=== PATIENT | female | born 2000 | race Caucasian/White ===

== ENCOUNTER 2018-12-07 22:06 | Emergency (ER) | payer OTHER ==
[~2018-12-07] VITALS: Ht 157.5 cm; Wt 52.0 kg
[~2018-12-07 22:06] MED LIST: ALBU18HF INHALATION; BUDE6.9H INHALATION
[2018-12-07 22:19] VITALS: Ht 157.5 cm; Wt 52.0 kg
[2018-12-07] MEDS ORDERED: IPRATROPIUM (NEB) 0.5 MG/2.5 ML AMP NEB STA (23:01)
[2018-12-07] MEDS ORDERED: ALBUTEROL 0.5% (NEB) 2.5 MG/0.5 ML AMP INH STA (23:01)
--- NOTE | 2018-12-07 23:58 | ERD ---
ER Documentation Chief Complaint Chief Complaint dry cough x1 week with chest tightness x 1 day HPI 17-year-old female presents to ED complaining of dry cough x1 week. Patient denies any fevers or chills. Denies any abdominal pain, nausea, vomiting, diarrhea. Patient reports a history of asthma in which she ran out of her inhalers. She is asked for refill for inhalers. She is also asking for a breathing treatment to help make her feel better. She reports this has happened in the past in which she is received a breathing treatment and feels much better afterwards. ROS All systems reviewed and are negative except as per history of present illness. Medications Home Meds Active Scripts Budesonide-Formoterol Fumarate* (Symbicort*) 80-4.5 Mcg Hfa.aer.ad, 2 PUFF IN HALATION BID, #1 BOTTLE Prov:DAPHNEY RIBERA PA-C 12/07/18 Albuterol Sulfate* (Ventolin HFA*) 18 Gm Hfa.aer.ad, 2 PUFF INHALATION Q4H, #1 INHALER Prov:DAPHNEY RIBERA PA-C 12/07/18 Allergies Allergies: Coded Allergies: No Known Allergy (Unverified , 12/07/18) PMhx/Soc Hx Respiratory Disorders: Yes (ASTHMA ) Hx Alcohol Use: No Hx Substance Use: No Hx Tobacco Use: No Smoking Status: Never smoker FmHx Family History: No diabetes Physical Exam Vitals Vital Signs Date Temp Pulse Resp B/P (MAP) Pulse Ox O2 O2 Flow FiO2 Time Delivery Rate 12/07/18 88 18 98 21 23:21 12/07/18 99.9 93 16 128/82 98 22:19 (97) Physical Exam Const: No acute distress Head: Atraumatic . Resp: Moderate wheezing with expiration in bilateral lungs Cardio: Regular rate and rhythm, Abd: Soft, non tender, non distended. Neur: Awake and alert Psych: Normal Mood and Affect Results 24 hrs Current Medications Medications Dose Sig/Luke Start Time Status Last (Trade) Ordered Route PRN Stop Time Admin Dose Reason Admin Ipratropium 0.5 mg ONCE STAT 12/07/18 DC 12/07/18 [place] NEB 23:01 23:19 (Atrovent 12/07/18 23:03 0.02% (Neb)) Albuterol 5 mg ONCE STAT 12/07/18 DC 12/07/18 (Proventil INH 23:01 23:19 0.5% (Neb)) 12/07/18 23:03 Procedures/MDM ED COURSE: The patient was stable throughout ED course. I kept the patient informed of laboratory and diagnostic imaging results throughout the ED course. PROCEDURES: Breathing Tx: RT consulted MEDICATIONS GIVEN: Albuterol, ipratropium Patient tolerated medication well with no adverse reactions. Patient reported improvement in pain. MEDICAL DECISION MAKING: Patient is a 8-year-old female presenting with asthma. I have low suspicion for pneumonia, PE, abscess, pleural effusion or pneumothorax. Patient was given a breathing treatment in the ED course. Afterwards patient states she felt much better and her breathing improved. Patient is appropriate for outpatient treatment at this point. Patient was discharged with inhaler for albuterol and Symbicort. Patient was given strict return ED precautions if symptoms persist or worsen. Patient agreed with the plan and all questions were answered Vital signs were reviewed. Patient is afebrile. Patient was not hypoxic. Patient was hemodynamically stable. Patient was told to follow up with primary care for further care and management. PRESCRIPTION: Albuterol, Symbicort DISCHARGE: At this time, patient is stable for discharge and outpatient management. I have instructed the patient to follow-up with their primary care physician in 1-2 days. I have discussed with the patient the possibility of needing to see a specialist for further workup and imaging studies if symptoms persist. I have instructed the patient to promptly return to the ER for any new or worsening symptoms including increased pain, fever, nausea, vomiting, weakness or LOC. The patient expressed understanding of and agreement with this plan. All questions were answered. Home care instructions were provided. Disclaimer: Inadvertent spelling and grammatical errors are likely due to [employer]/dictation software use and do not reflect on the overall quality of patient care. Also, please note that the electronic time recorded on this note does not necessarily reflect the actual time of the patient encounter. Departure Diagnosis: Primary Impression: Asthma Asthma severity: moderate Asthma persistence: persistent Asthma complication type: unspecified Qualified Codes: J45.40 - Moderate persistent asthma, uncomplicated Condition: Good Patient Instructions: Asthma Referrals: COMM[facility] YOU HAVE RECEIVED A MEDICAL SCREENING EXAM AND THE RESULTS INDICATE THAT YOU DO NOT HAVE A CONDITION THAT REQUIRES URGENT TREATMENT IN THE EMERGENCY DEPARTMENT. FURTHER EVALUATION AND TREATMENT OF YOUR CONDITION CAN WAIT UNTIL YOU ARE SEEN IN YOUR DOCTORS OFFICE WITHIN THE NEXT 1-2 DAYS. IT IS YOUR RESPONSIBILITY TO MAKE AN APPOINTMENT FOR FOLOW-UP CARE. IF YOU HAVE A PRIMARY DOCTOR --you should call your primary doctor and schedule an appointment IF YOU DO NOT HAVE A PRIMARY DOCTOR YOU CAN CALL OUR PHYSICIAN REFERRAL HOTLINE AT IF YOU CAN NOT AFFORD TO SEE A PHYSICIAN YOU CAN CHOSE FROM THE FOLLOWING [facility] [address] [facility] [address] [facility] [address] [facility] [address] [facility] [address] [facility]. [facility] [address] [facility]. [facility] YOU HAVE RECEIVED A MEDICAL SCREENING EXAM AND THE RESULTS INDICATE THAT YOU DO NOT HAVE A CONDITION THAT REQUIRES URGENT TREATMENT IN THE EMERGENCY DEPARTMENT. FURTHER EVALUATION AND TREATMENT OF YOUR CONDITION CAN WAIT UNTIL YOU ARE SEEN IN YOUR DOCTORS OFFICE WITHIN THE NEXT 1-2 DAYS. IT IS YOUR RESPONSIBILITY TO MAKE AN APPOINTMENT FOR FOLOW-UP CARE. IF YOU HAVE A PRIMARY DOCTOR --you should call your primary doctor and schedule and appointment IF YOU DO NOT HAVE A PRIMARY DOCTOR YOU CAN CALL OUR PHYSICIAN REFERRAL HOTLINE AT . IF YOU CAN NOT AFFORD TO SEE A PHYSICIAN YOU CAN CHOSE FROM THE FOLLOWING [facility]: [facility] [address] [place] [address] [facility] [address] [place] [address] [facility] [address] [place] [address] Additional Instructions: Call your primary care doctor TOMORROW for an appointment during the next 1-2 days.See the doctor sooner or return here if your condition worsens before your appointment time. DAPHNEY RIBERA PA-C Dec 07, 2018 23:58
[2018-12-08 00:27] VITALS: BP 105/62; PULSE 77; RESP 17
== END 2018-12-08 00:27 | disposition home or self-care (01) ==
LOC: FTE 22:06
DX: J45.40 Moderate persistent asthma, uncomplicated (principal)
CPT/HCPCS: 94664; Z7502; Z7610; 93005